=== PATIENT | female | born 1995 ===

== ENCOUNTER 2025-06-01 23:47 | Emergency (ER) | payer OTHER, SELFPAY ==
--- NOTE | 2025-06-01 23:49 | ECG_ITS ---
Test Reason : CHEST PAIN Blood Pressure : */* mmHG Vent. Rate : 73 BPM Atrial Rate : 73 BPM P-R Int : 130 ms QRS Dur : 104 ms QT Int : 406 ms P-R-T Axes : 65 24 -14 degrees QTcB Int : 447 ms Normal sinus rhythm with sinus arrhythmia Nonspecific T wave abnormality Abnormal ECG No previous ECGs available Referred By: Generic ED Physician Electronically Signed By: NGHIA REYNA MD
[2025-06-01 23:59] VITALS: BP 127/61; PULSE 66; RESP 18; TEMP 36.6; O2SAT 100; BMI 22.7
[2025-06-02 00:10] LABS: MANUAL DIFF FLAG NO
[2025-06-02 00:11] LABS: Hematocrit 36.2 % (37.0-47.0); Hemoglobin 12.8 g/dl (12.0-16.0); Imm Gran Abs Auto 0.02 X10*3/uL (0.00-0.03); Imm Gran Pct Auto 0.2 % (0.0-0.4); Lymphocytes Absolute Auto 1.7 X10*3/uL (1.2-4.9); Mean Corpuscular HGB Conc 35.4 g/dl (31.0-35.0); Mean Corpuscular Hemoglobin 31.3 pg (27.0-33.0); Mean Corpuscular Volume 88.5 fL (80.0-98.0); NRBC Abs Auto 0.000 X10*3/uL (0.0-0.012); NRBC Pct Auto 0.0 /100WBC (0.0-0.2); Platelet Count 214 X10*3/uL (160-400); Red Blood Count 4.09 X10*6/uL (4.20-5.50); White Blood Count 8.1 X10*3/uL (4.8-10.8)
[2025-06-02 00:28] LABS: Alanine Aminotransferase 17 U/L (0-31); Albumin Level 4.6 g/dL (3.5-5.0); Alkaline Phosphatase 106 U/L (39-117); Anion Gap 13 (12-20); Aspartate Amino Transferase 20 U/L (5-31); Blood Urea Nitrogen 19 mg/dL (9-16); Calcium 8.8 mg/dL (8.4-10.2); Carbon Dioxide 23 mmol/L (22-29); Chloride 105 mmol/L (96-108); Creatinine Clr Calc Pharmacy 106.2; Estimated Glomerular Filt Rate > 60; Potassium 3.7 mmol/L (3.3-5.1); Sodium 137 mmol/L (135-145); Total Protein 6.9 g/dL (6.5-8.0)
[2025-06-02 00:36] LABS: Troponin-I High Sensitivity < 2.7 ng/L (<3.5-17.0)
[2025-06-02 00:49] LABS: Resp Syncy Virus RNA Qual PCR NEGATIVE (Negative); SARS COV2 PCR INHOUSE NEGATIVE (Negative)
--- NOTE | 2025-06-02 04:49 | ED_ITS ---
HPI - Chest Pain General Chief Complaint: Chest Pain Stated Complaint: Chest Pain Time Seen by Provider: 06/02/25 04:48 Source: patient Mode of arrival: ambulatory Limitations: no limitations History of Present Illness ED Provider: Dr. Brandy Robbins HPI narrative: 30 year old female with no significant PMH currently 5 weeks by LMP (04/23) with confirmed blood test presenting with chest tightness and shortness of breath, dry cough and sneezing ongoing since this afternoon. Her son is sick with URI at home currently. No reported fever. Describes some dysuria but otherwise denies headaches, sputum production, abdominal pain, nausea, vomting, bowel changes, hematuria, vaginal bleeding or discharge, leg swelling or pain, recent travel. Related Data Previous Rx's ?Medication ?Instructions ?Recorded nitrofurantoin 100 mg PO Q12H 7 days #14 ca ps 06/02/25 monohydrate/macrocrystals 100 mg capsule (Macrobid) Allergies Allergy/AdvReac Type Severity Reaction Status Date / Time No Known Allergies Allergy Verified 06/02/25 00:01 Review of Systems 2 Review of Systems: as per HPI, full review of systems performed and negative but for the above mentioned pertinent positives and negatives. [facility] Social History Social History Advance Directives: No Advance Directives Information Provided: Yes Do you have a plan to hurt others: No Plan Physical Exam 2 Exam: Exam: GENERAL: Well-Appearing, conversant, no acute distress. SKIN: Normal skin color for ethnicity, warm, dry, no rashes noted. HEENT:? Normocephalic, atraumatic, no stridor, posterior oropharynx nonerythematous, dentition intact, EOMI. NECK: Soft, supple, full ROM, midline structures nontender, no step-offs, no deformities, no lymphadenopathy. CHEST: Heart regular rate and rhythm, no murmurs, symmetric chest rise and fall. PULMONARY: Clear to auscultation bilaterally, no labored breathing, no wheezes/rhales/rhonchi. ABDOMINAL: Soft, nondistended, suprapubic tenderness to palpation, quiet bowel sounds in all quadrants. : Deferred. MUSCULOSKELETAL: Normal tone, full range of motion, no deformities, no peripheral edema. NEURO: Alert and oriented x3, CN II through XII intact, equal strength and sensation bilateral upper and lower extremities, no focal neurologic deficits.? PSYCHIATRIC: Normal affect, fluid speech, good eye contact and appropriate demeanor. Vital Signs: Vital Signs: Last Vital Signs Temp 98 F 06/02/25 05:44 Pulse 58 06/02/25 05:44 Resp 16 06/02/25 05:44 BP 118/62 06/02/25 05:44 Pulse Ox 98 06/02/25 05:44 O2 Del Method Room Air 06/02/25 05:44 BMI result Body Mass Index 22.7 Medications Administered Discontinued Medications Generic Name Dose Route Start Last Admin Trade Name Satnam PRN Reason Stop Dose Admin Acetaminophen 650 mg 06/02/25 05:26 06/02/25 05:37 Acetaminophen 325 Mg Tablet PO 06/02/25 05:27 650 mg ONCE ONE Administration Lidocaine 1 patch 06/02/25 05:26 06/02/25 05:37 Lidocaine 4 % Patch Adh..Patch TRANSDERMA 06/02/25 05:27 1 patch ONCE ONE Administration Protocol Nitrofurantoin Macrocrystals 100 mg 06/02/25 05:26 06/02/25 05:37 Nitrofurantoin Monohyd/M-Cryst 100 Mg Capsule PO 06/02/25 05:27 100 mg ONCE ONE Administration Medical Decision Making Medical Decision Making [facility] Narrative: Patient presents today with flu-like symptoms. Differential diagnosis includes influenza, coronavirus, pneumonia, upper respiratory infection, among others. Most importantly, this patient is not in any acute respiratory distress. They have normal oxygen levels at room air. She is in early and is having suprapubiv tenderness with dysuria, will treat with macrobid for cystitis. I have discussed medication and other home therapies that will help the patient and have discussed strict return precautions. Instructed that symptoms may worsen and the patient might need re-evaluation or even hospitalization in the future, but did not show signs of this at the time of discharge. Differential Diagnosis Differential Diagnoses: The differential diagnosis associated with the presentation includes (as above) Admission/Observation Consideration of admission/observation: Escalation of care including admission/observation considered Lab Data [facility] Lab Attestation statement: I reviewed the patient's lab results. 06/01/25 23:58 06/01/25 23:58 Labs: Lab Results 06/01/25 06/02/2506/02/25 Range/Units 23:58 00:00 05:03 WBC 8.1 (4.8-10.8) X10*3/uL RBC 4.09 L (4.20-5.50) X10*6/uL Hgb 12.8 (12.0-16.0) g/dl Hct 36.2 L (37.0-47.0) % MCV 88.5 (80.0-98.0) fL MCH 31.3 (27.0-33.0) pg MCHC 35.4 H (31.0-35.0) g/dl RDW 11.7 (11.0-16.0) % Plt Count 214 (160-400) X10*3/uL MPV 10.2 (9.4-12.3) fL Immature Gran % (Auto) 0.2 (0.0-0.4) % Neut % (Auto) 66.6 (45-73) % Lymph % (Auto) 21.0 (20-40) % [place] % (Auto) 11.3 H (2-11) % Eos % (Auto) 0.4 (0-4) % Baso % (Auto) 0.5 (0-2) % Lymph # (Auto) 1.7 (1.2-4.9) X10*3/uL [place] # (Auto) 0.9 (0.1-1.2) X10*3/uL Eos # (Auto) 0.0 (0.0-0.4) X10*3/uL Baso # (Auto) 0.0 (0.0-0.2) X10*3/uL Abs Immat Gran (auto) 0.02 (0.00-0.03) X10*3/uL Absolute Neuts (auto) 5.4 (2.0-8.3) x10*3/uL Absolute Nucleated RBC 0.000 (0.0-0.012) X10*3/uL Nucleated RBC % (auto) 0.0 (0.0-0.2) /100WBC Sodium 137 (135-145) mmol/L Potassium 3.7 (3.3-5.1) mmol/L Chloride 105 (96-108) mmol/L Carbon Dioxide 23 (22-29) mmol/L Anion Gap 13 (12-20) BUN 19 H (9-16) mg/dL Creatinine 0.76 (0.5-1.4) mg/dL Estim Creat Clear Calc 106.2 Estimated GFR > 60 Random Glucose 79 (60-115) mg/dL Calcium 8.8 (8.4-10.2) mg/dL Total Bilirubin 0.6 (0.0-1.0) mg/dL AST 20 (5-31) U/L ALT 17 (0-31) U/L Alkaline Phosphatase 106 (39-117) U/L Troponin I High Sens < 2.7 (<3.5-17.0) ng/L Total Protein 6.9 (6.5-8.0) g/dL Albumin 4.6 (3.5-5.0) g/dL Urine Color Yellow Urine Appearance Clear Urine pH 6.0 (5.0-9.0) Ur Specific [place] 1.015 (1.005-1.025) Urine Protein Negative (Neg-Trace) mg/dL Urine Glucose (UA) Negative (Negative) mg/dL Urine Ketones Negative (Negative) mg/dL Urine Blood Negative (Negative) Urine Nitrite Positive H (Negative) Ur Leukocyte Esterase Small (1+) H (Negative) Urine RBC 0-2 (0-2) /HPF Urine WBC 6-10 H (0-5) /HPF Ur Squamous Epith Cells 0-2 (0-2) /HPF Urine Bacteria 4+ (None Seen) Hyaline Casts 0-2 (0-2) /LPF Influenza Type A (PCR) NEGATIVE (Negative) Influenza Type B (PCR) NEGATIVE (Negative) RSV RNA Qual (PCR) NEGATIVE (Negative) SARS-CoV-2 RNA (RT-PCR) NEGATIVE (Negative) Prescription Management I considered prescription management with: Antibiotic Discharge Plan Discharge Clinical Impression: Atypical chest pain, UTI (urinary tract infection) in in first trimester Patient Disposition: Home, Self-Care Instructions: Noncardiac Chest Pain (ED), Urinary Tract Infection in (ED) Additional Instructions: DIAGNOSIS & TREATMENT: You were seen in the Emergency Department for your chest pain and dysuria. We performed laboratory work and chest xray which did not reveal any acute abnormalities that would explain your symptoms. You did test positive for a urinary tract infection though. Take your antibiotic as prescribed until the course is completed. Do not stop this medication early if you start to feel better. Return to the hospital with worsening symptoms despite antibiotic treatment. FURTHER CARE: We have not found any emergent physical exam or lab abnormalities that would require admission to the hospital today. Many people who come to the ER with chest pain do not leave with a specific diagnosis at the end of their visit. In the Emergency Department we try to make sure that there is no emergent problem that needs to cardiology consultation or admission right now. This does not mean that your evaluation is complete--please be sure to follow up with your regular doctor as additional testing as an outpatient may be indicated Please be certain to drink plenty of fluids over the next several days. WHEN YOU SHOULD BE SEEN NEXT: Please follow-up with your primary care provider within the next 2-3 days for reevaluation of your symptoms. WHEN TO RETURN TO THE ED: Monitor your symptoms closely and return to the emergency department immediately for any new/worsening symptoms, worsening chest pain, shortness of breath, nausea, vomiting, fevers, chills, night sweats, you are unable to arrange follow-up care, or any other concerning symptoms. Prescriptions: New nitrofurantoin monohyd/m-cryst [Macrobid] 100 mg capsule 100 mg PO Q12H 7 Days Qty: 14 0RF Rx Instructions: must administer with a meal/food Interventions: ED Discharge Assessment Last Done: 06/02/25 05:44 Discharge Date/Time: 06/02/25 05:47 Print Language: [place]
[2025-06-02 05:08] VITALS: BP 118/62; PULSE 58; RESP 16; O2SAT 98
[2025-06-02 05:08] LABS: Appearance Urine Clear; Glucose Urine UA Negative (Negative); PH 6.0 (5.0-9.0); Specific Gravity - Urine 1.015 (1.005-1.025); UMIC TRIGGER UACC YES
[2025-06-02 05:11] LABS: UACC Culture Trigger YES
[2025-06-02] MEDS: Lidocaine 4 % Patch ADH..PATCH 1 PATCH TRANSDERMA (05:37)
[2025-06-02 05:44] VITALS: BP 118/62; PULSE 58; RESP 16; TEMP 36.6; O2SAT 98
== END 2025-06-02 05:47 | disposition home or self-care (01) ==
PROVIDERS: Emergency Provider Emergency Medicine
DX: O23.11 Infections of bladder in pregnancy, first trimester (principal); O23.41 Unspecified infection of urinary tract in pregnancy, first trimester; N39.0 Urinary tract infection, site not specified
CPT/HCPCS: 36415; 80053; 81001; 84484; 85025; 87086; 87088; 87186; 87637; 93005; 99283; 99284

== ENCOUNTER → 2025-06-01 23:49 | Outpatient (BNV) | payer MEDICAID, SELFPAY | PROVIDERS: Emergency Provider Emergency Medicine; Visit Provider Internal Medicine Cardiovascular Disease | DX: R94.31 Abnormal electrocardiogram [ECG] [EKG] (principal); R07.9 Chest pain, unspecified | CPT/HCPCS: 93010 ==